=== PATIENT | female | born 1985 | race Asian ===

== ENCOUNTER 2017-04-24 08:43 | Inpatient (IN) | payer MEDICAID ==
[2017-04-24] MEDS ORDERED: TERBUTALINE SULFATE 1 MG/ML VIAL IV PRN (09:07)
[2017-04-24] MEDS ORDERED: OXYTOCIN 20 UNIT in LR 1,000 ML IV PRN (09:07)
[2017-04-24] MEDS ORDERED: EPSOM SALT 454 GM TP PRN (09:07)
[2017-04-24] MEDS ORDERED: LR 1,000 ML IV PRN (09:07)
[2017-04-24] MEDS ORDERED: OLIVE OIL 118 ML BTL MISC PRN (09:07)
[2017-04-24] MEDS ORDERED: AMMONIA AROMATIC 1 EACH AMP IH PRN (09:07)
[2017-04-24] MEDS ORDERED: LR 500 ML IV PRN (10:30)
[2017-04-24] MEDS ORDERED: OXYTOCIN 30 UNIT in NS 500 ML IV SCH (10:30)
--- NOTE | 2017-04-24 10:52 | GHP ---
[f rep st] HISTORY AND PHYSICAL DATE OF ADMISSION: 04/24/2017 ADMISSION DIAGNOSES: 1. Intrauterine at 39-5/7 weeks' gestation. 2. Spontaneous rupture of membranes. HISTORY OF PRESENT ILLNESS: The patient is a 31-year-old, 1, para 0, who is 39-5/7 weeks' station. Her estimated date of confinement is 04/26/2017, dated by last menstrual period consistent with a 9 weeks 5 days ultrasound. The patient transferred to [facility] at 22 weeks' gesta tion. Her has been uncomplicated. She had a growth ultrasound at 33 weeks secondary to si ze less than dates. At her 30-week ultrasound, estimated weight was the 23rd percentile with a n YANET of 16. The patient had spontaneous rupture of membranes at 5:30 in the morning. She is having occasional tightening of her belly, but not having any contractions. status remains reassurin g. MEDICAL HISTORY: History of dengue fever at age 23. MEDICATIONS: vitamins. SURGICAL HISTORY: Negative. ALLERGIES: No known drug allergies. SOCIAL HISTORY: Patient is a homemaker. She is originally from [place] and moved to [facility] i n 06/2016. She denies tobacco, alcohol, or drug use. FAMILY MEDICAL HISTORY: Noncontributory. SOURCING INTER[employer]HIP HISTORY: Menarche age 15. Periods every 30 days lasting 5 days. She is 1, para 0. Current has been uncomplicated. The patient denies any history of any abnormal Pap smears or sexually transmitted diseases. REVIEW OF SYSTEMS: 10-point review of systems is negative with the exception of the above-mentioned pertinent positives. Positive movement, positive loss of fluid, small amount of vaginal bleedi ng. She denies any headache, changes in vision, nausea, vomiting, cramping, or obdulia. PHYSICAL EXAMINATION: VITAL SIGNS: Stable. GENERAL APPEARANCE: Alert and oriented x3. PSYCH: Ap propriate affect. NECK: Mobile and supple. HEART: Rate is regular. LUNGS: Clear to auscultation bilaterally. ABDOMEN: Gravid, nondistended, nontender. EXTREMITIES: Reveal no calf tenderness or edema. MUSCULOSKELETAL: Grossly intact. NEURO: Grossly intact. PELVIC: Cervix was posterior and uncomfortable for the patient, so I did not complete exam. The is in a vertex presentation. heart tracing is category 1. She is having occasional contractions that are very mild and not ed to be cramping, per patient. LABS: Blood type B positive, antibody screen negative. Rubella immune. GBS negative. HBs Ag negative. HIV negative. She had a negative 1st trimester screen. ASSESSMENT AND PLAN: 31-year-old, 1, para 0, at 39-5/7 weeks' gestation with premature ruptu re of membranes. She will be started on Pitocin. If she does not progress into labor, she will be m anaged expectantly. She will most likely get an epidural. She has talked to Anesthesia about risks and benefits and will request one when she is uncomfortable. /[id number]/MODL
[2017-04-24 11:12] LABS: PLATELET COUNT 197 10^3/uL (150-400)
[2017-04-24] MEDS ORDERED: LIDOCAINE 1% 300 MG/30 ML SDV ONE (11:59)
[2017-04-24] MEDS ORDERED: OLIVE OIL 118 ML BTL ONE (11:59)
[2017-04-24] MEDS ORDERED: OXYTOCIN 10 UNIT/ML VIAL ONE (12:00)
[2017-04-24] MEDS ORDERED: AMMONIA AROMATIC 1 EACH AMP IH ONE (12:00)
[2017-04-24] MEDS ORDERED: MISOPROSTOL 200 MCG TAB ONE (12:00)
[2017-04-24] MEDS ORDERED: TERBUTALINE SULFATE 1 MG/ML VIAL ONE (12:00)
--- NOTE | 2017-04-24 13:45 | OBPROG ---
Labor Progress Note Assessment/Plan: Assessment: Plan: Subjective/Intrapartum Course: 04/24/17 13:36 pitocin is at 4. patient feeling painful contractions with increased pressure. has good variability but occasional late decelerations. Objective: 04/24/17 11:00 Patient ABO/Rh B POSITIVE 04/24/17 11:00 - SVE Dilation (cm): 3, 4 Effacement (%): 90 Station: 0 Membranes: SROM Amniotic Fluid Color: Clear - FHR Assessment Greer FHR Pattern Variability: Moderate FHR Category: 2 - AP Antepartum Course: 04/24/17 13:38 transfer of care at 22 weeks to [facility]. initiated care in first trimester. moved from [facility] 08/07. growth ultrasound in third trimester due to size less than dates. normal growth. srom at 0530 am. Oxytocin Orders Assessment - Pre-Induction/Augmentation Assessment Gestational Age: 39 week(s) and 5 day(s) ICD10 Worksheet Patient Problems: Problems Problem Status Onset Premature rupture of membranes Acute
[2017-04-24] MEDS ORDERED: fentaNYL 2MCG/ML/BUP 0.1% RTU 100 ML BAG EP ONE (13:50)
[2017-04-24] MEDS ORDERED: PHENYLEPHRINE HCL 100 MCG/ML SYR ONE (13:50)
[2017-04-24] MEDS ORDERED: PHENYLEPHRINE HCL 100 MCG/ML SYR IVP PRN (14:19)
[2017-04-24] MEDS ORDERED: ONDANSETRON 4 MG/2 ML VIAL IVP PRN (14:19)
--- NOTE | 2017-04-24 14:19 | PREANESOB ---
Obstetric Pre-Anesthesia Info - General Info Proposed Procedure: Labor Epidural : 1 Para: 0 JOY: 04/26/17 Gestational Age: 39 week(s) and 5 day(s) - Info Status: Full Term FHR Pattern: Reassuring - Labor Status Cervical Dilation per last OB SVE: 3, 4 Station per last OB SVE: 0 Amniotic Fluid Color: Clear Indications for Labor Analgesia: Pain Control Labor Epidural: Proposed (RBA discussed, patient agrees to proceed) Anesthesia Allergies/Adverse Reactions: Allergy/AdvReac Type Severity Reaction Status Date / Time No Known Allergies Allergy Unverified 04/24/17 09:07 Visit Medications: Generic Name Dose Route Start Last Admin Trade Name Freq PRN Reason Stop Dose Admin Ammonia (Aromatic Spirit) 1 each 04/24/17 09:07 Ammonia Aromatic IH 05/04/17 09:06 ONCE PRN Fainting Lactated Ringer's 1,000 mls @ 0 mls/hr 04/24/17 09:07 04/24/17 11:52 Lr IV 04/25/17 09:06 1,000 mls PRN PRN Administration SEE PROTOCOL CONDITIONS Protocol Per Protocol Oxytocin 20 unit/ Lactated 1,002 mls @ 150 mls/hr 04/24/17 09:07 Ringer's IV PRN PRN Post- bleeding Lactated Ringer's 500 mls @ 500 mls/hr 04/24/17 10:30 Lr IV 04/25/17 10:30 PRN PRN Maternal Hypotension Oxytocin 30 unit/ Sodium 503 mls @ 0 mls/hr 04/24/17 10:30 04/24/17 11:52 Chloride IV 10/21/17 10:29 503 mls CONT RICHELLE Administration Protocol Per Protocol Ibuprofen 600 mg 04/24/17 09:07 Motrin PO 10/21/17 09:06 Q6HRS PRN post , inflammation Magnesium Sulfate 454 gm 04/24/17 09:07 Epsom Salt TP 10/21/17 09:06 Q1H PRN perineal discomfort Witter Oil 118 ml 04/24/17 09:07 Sweet Oil MISC 10/21/17 09:06 ONCE PRN perineal massage Terbutaline Sulfate 0.25 mg 04/24/17 09:07 Brethine IV 10/21/17 09:06 ONCE PRN Tachysystole Discontinued Medications Generic Name Dose Route Start Last Admin Trade Name Genaro PRN Reason Stop Dose Admin Ammonia (Aromatic Spirit) Confirm 04/24/17 12:00 Ammonia Aromatic Administered 04/24/17 12:01 Dose 1 each IH .STK-MED ONE Fentanyl/Bupivacaine HCl Confirm 04/24/17 13:50 Fentanyl/Bupivacaine/Ns 2 Mcg/Ml 0.1% (Premix Administered 04/24/17 13:51 Dose 100 ml EP .STK-MED ONE Lidocaine HCl Confirm 04/24/17 11:59 Lidocaine Hcl 1% Administered 04/24/17 12:00 Dose 300 mg .ROUTE .STK-MED ONE Misoprostol Confirm 04/24/17 12:00 Cytotec Administered 04/24/17 12:01 Dose 800 mcg .ROUTE .STK-MED ONE Witter Oil Confirm 04/24/17 11:59 Sweet Oil Administered 04/24/17 12:00 Dose 118 ml .ROUTE .STK-MED ONE Oxytocin Confirm 04/24/17 12:00 Pitocin Administered 04/24/17 12:01 Dose 40 unit .ROUTE .STK-MED ONE Phenylephrine HCl Confirm 04/24/17 13:50 Neosynephrine Administered 04/24/17 13:51 Dose 1,000 mcg .ROUTE .STK-MED ONE Terbutaline Sulfate Confirm 04/24/17 12:00 Brethine Administered 04/24/17 12:01 Dose 1 mg .ROUTE .STK-MED ONE - Vital Signs Height/Weight (Nursing): Height 159 cm Weight 64.864 kg Labs: 04/24/17 11:00 Patient ABO/Rh B POSITIVE 04/24/17 11:00
[2017-04-24] MEDS ORDERED: fentaNYL 2MCG/ML/BUP 0.1% RTU 100 ML EP SCH (14:30)
--- NOTE | 2017-04-24 16:38 | OBPROG ---
Labor Progress Note Assessment/Plan: Assessment: Plan: Subjective/Intrapartum Course: 04/24/17 13:36 pitocin is at 4. patient feeling painful contractions with increased pressure. has good variability but occasional late decelerations. 04/24/17 16:34 patient comfortable with epidural. progressed to complete. occasional variable decelerations. pitocin is at 2 mu. tried pushing x 1 contraction. patient only occasionally feeling urge or pressure. will reposition and labor down and begin pushing. overall status is reassuring. Objective: 04/24/17 11:00 Patient ABO/Rh B POSITIVE 04/24/17 11:00 - SVE Dilation (cm): 10 Effacement (%): 100 Station: 0 Membranes: SROM Amniotic Fluid Color: Clear Dilation Complete Date: 04/24/17 Dilation Complete Time: 15:18 - Contraction Pattern Assessment Current Contraction Pattern: Regular - FHR Assessment Greer FHR Pattern Variability: Moderate FHR Category: 2 - AP Antepartum Course: 04/24/17 13:38 transfer of care at 22 weeks to [facility]. initiated care in first trimester. moved from [facility] 08/07. growth ultrasound in third trimester due to size less than dates. normal growth. srom at 0530 am. Oxytocin Orders Assessment - Pre-Induction/Augmentation Assessment Gestational Age: 39 week(s) and 5 day(s) ICD10 Worksheet Patient Problems: Problems Problem Status Onset Premature rupture of membranes Acute
--- NOTE | 2017-04-24 17:26 | OBPROG ---
Labor Progress Note Assessment/Plan: Assessment: Plan: Subjective/Intrapartum Course: 04/24/17 13:36 pitocin is at 4. patient feeling painful contractions with increased pressure. has good variability but occasional late decelerations. 04/24/17 16:34 patient comfortable with epidural. progressed to complete. occasional variable decelerations. pitocin is at 2 mu. tried pushing x 1 contraction. patient only occasionally feeling urge or pressure. will reposition and labor down and begin pushing. overall status is reassuring. 04/24/17 17:23 patient complete and pushing. having decels with slow return to baseline. will continue pushing. anesthesia notified and asked to be in house until patient delvers. Objective: 04/24/17 11:00 Patient ABO/Rh B POSITIVE 04/24/17 11:00 - SVE Dilation (cm): 10 Effacement (%): 100 Station: +2 Membranes: SROM Amniotic Fluid Color: Clear Dilation Complete Date: 04/24/17 Dilation Complete Time: 15:18 - Contraction Pattern Assessment Current Contraction Pattern: Regular - AP Antepartum Course: 04/24/17 13:38 transfer of care at 22 weeks to [facility]. initiated care in first trimester. moved from [facility] 08/07. growth ultrasound in third trimester due to size less than dates. normal growth. srom at 0530 am. Oxytocin Orders Assessment - Pre-Induction/Augmentation Assessment Gestational Age: 39 week(s) and 5 day(s) ICD10 Worksheet Patient Problems: Problems Problem Status Onset Premature rupture of membranes Acute
--- NOTE | 2017-04-24 19:25 | OBDEL ---
Info Type: Vaginal Presentation at Delivery: Vertex L&D Analgesia/Anesthesia Type: Epidural GBS+: No Intrapartum Medications: Generic Name Dose Route Start Last Admin Trade Name Freq PRN Reason Stop Dose Admin Lactated Ringer's 1,000 mls @ 0 mls/hr 04/24/17 09:07 04/24/17 11:52 Lr IV 04/25/17 09:06 1,000 mls PRN PRN Administration SEE PROTOCOL CONDITIONS Protocol Per Protocol Oxytocin 30 unit/ Sodium 503 mls @ 0 mls/hr 04/24/17 10:30 04/24/17 11:52 Chloride IV 10/21/17 10:29 503 mls CONT RICHELLE Administration Protocol Per Protocol - Hospital Course Intrapartum: 04/24/17 13:36 pitocin is at 4. patient feeling painful contractions with increased pressure. has good variability but occasional late decelerations. 04/24/17 16:34 patient comfortable with epidural. progressed to complete. occasional variable decelerations. pitocin is at 2 mu. tried pushing x 1 contraction. patient only occasionally feeling urge or pressure. will reposition and labor down and begin pushing. overall status is reassuring. 04/24/17 17:23 patient complete and pushing. having decels with slow return to baseline. will continue pushing. anesthesia notified and asked to be in house until patient delvers. 04/24/17 19:22 severe decels with pushing. discussed vacuum vs c section risks and benefits. agreeable to vacuum attempt Indications for Delivery: Spontaneous Labor, SROM Vaginal Delivery - Delivery Provider Delivery Physician/CNM: Fatuma Smith - Labor and Delivery Onset of Contractions Date: 04/24/17 Onset of Contractions Type: Augmented Rupture of Membranes Date: 04/24/17 Rupture of Membranes Time: 05:30 Rupture of Membranes Type: Spontaneous Amniotic Fluid Color: Clear Dilation Complete Date: 04/24/17 Dilation Complete Time: 15:18 Placenta Delivery Date: 04/24/17 Placenta Delivery Time: 18:18 Laceration: 2nd Degree, Other (Specify) (bilateral sulcus tears, left labial) Vaginal Sponge Count Correct: Yes Vaginal Needle Count Correct: Yes Vaginal Sweep Performed: No EBL: 200 Delivery Events: Nuchal Cord Delivery Comment: severe variables with decreased variability towards the end of pushing. decision made to use vacuum Cord Gases: Cord Gases Cord Blood PCO2 TNP 04/24/17 18:18 Cord Base Excess TNP 04/24/17 18:18 Cord ABG pH TNP 04/24/17 18:18 Cord VBG pH 7.24 (7.20-7.42) 04/24/17 18:18 - Medications Labor Augmentation/Induction Methods Used: Pitocin Labor Augmentation/Induction Indication: Contraction Strength Inadequate Operative Report - Delivery Cord Gases: Cord Gases Cord Blood PCO2 TNP 04/24/17 18:18 Cord Base Excess TNP 04/24/17 18:18 Cord ABG pH TNP 04/24/17 18:18 Cord VBG pH 7.24 (7.20-7.42) 04/24/17 18:18 Assissted Delivery Assisted Delivery Type: Vacuum Station: +3 Pop offs (Total): 0 Pulls (Total): 1 [place] Data JOY: 04/26/17 Gestational Age: 39 week(s) and 5 day(s) Greer Delivery Date: 04/24/17 Delivery Time: 18:13 Sex of : Male Score (1 Min): 8 Score (5 Min): 9 ICD10 Worksheet Patient Problems: Problems Problem Status Onset Premature rupture of membranes Acute
[2017-04-24] MEDS ORDERED: SIMETHICONE 80 MG TAB CHEW PO PRN (19:30)
[2017-04-24] MEDS ORDERED: POLYETHYLENE GLYCOL 3350 17 GM PKT PO PRN (19:30)
[2017-04-24] MEDS ORDERED: LACTULOSE 20 GM/30 ML UDCUP PO PRN (19:30)
[2017-04-24] MEDS ORDERED: HYDROCODONE/APAP 5/325 TAB PO PRN (19:30)
[2017-04-24] MEDS ORDERED: MAGNESIUM HYDROXIDE 30 ML UDCUP PO PRN (19:30)
[2017-04-24] MEDS ORDERED: BISACODYL 10 MG SUPP PR PRN (19:30)
[2017-04-24] MEDS ORDERED: ACETAMINOPHEN 325 MG TAB PO PRN (19:30)
[2017-04-24] MEDS: IBUPROFEN 600 MG TAB PO PRN (20:39)
[2017-04-25] MEDS: SENNOSIDES/DOCUSATE SODIUM TAB PO SCH ×3 (01:25→15:59)
[2017-04-25] MEDS: IBUPROFEN 600 MG TAB PO PRN ×4 (02:39→22:25)
[2017-04-25] MEDS: HYDROCORTISONE 0.5% CREAM TP PRN ×2 (09:28→15:52)
--- NOTE | 2017-04-25 13:43 | OBPP ---
Progress Note Assessment/Plan: Assessment: s/p PPD # 1 - pt is stable Plan: Continue routine pp care Encourage ambulation Plan for d/c home in am 1/4 04/25/17 13:40 Subjective/ Course: 04/25/17 13:41 Pt seen and examined. Doing well, some vaginal soreness. Relief with Ibu. Mild cramping. Mod lochia. Pt is OOB, edmond regular diet, voiding and passing flatus. BF well thus far. Objective: 04/24/17 11:00 Patient ABO/Rh B POSITIVE 04/24/17 11:00 Temp Pulse Resp BP Pulse Ox 36.1 C 97 16 100/63 97 04/25/17 08:00 04/25/17 08:00 04/25/17 08:00 04/25/17 08:00 04/25/17 00:30 Uterine Position/Fundal Height: Umbilicus -2 Uterine Tone: Firm Physical Exam - Physical Exam Respiratory: normal breath sounds, respiratory distress Cardiac/Chest: regular rate, rhythm Abdomen: normal bowel sounds, non-tender, soft, flatus (+) Extremities: non-tender, normal inspection Skin: normal color, warm/dry Neuro/Psych: alert, normal mood/affect, oriented x 3
--- NOTE | 2017-04-25 13:52 | SOAPPROG ---
SOAP Progress Note Assessment/Plan: Assessment: Doing well, POD 1 epidural anesthesia. Plan: Continue routine PO cares. Call with questions or concerns. 04/25/17 13:50 04/25/17 13:51 Subjective: Patient seen and examined on the floor. POD 1 s/p epidural analgesia for labor. Doing well, no complaints. Denies GOODRICH, Nausea or difficulty ambulating or urinating. Objective: Vital Signs Temp Pulse Resp BP Pulse Ox 36.1 C 97 16 100/63 97 04/25/17 08:00 04/25/17 08:00 04/25/17 08:00 04/25/17 08:00 04/25/17 00:30 Laboratory Results 04/24/17 11:00 04/24/17 04/25/17 04/26/17 05:59 05:59 05:59 Output Total 400 Balance -400 Physical Exam - Physical Exam General Appearance: alert, no apparent distress Respiratory: normal breath sounds Cardiac/Chest: normal peripheral pulses Extremities: normal inspection ICD10 Worksheet Patient Problems: Problems Problem Status Onset Premature rupture of membranes Acute Status post vacuum-assisted vaginal delivery Acute
[2017-04-25] MEDS: DOCUSATE SODIUM 100 MG CAP PO PRN (22:25)
[2017-04-26] MEDS: IBUPROFEN 600 MG TAB PO PRN ×3 (05:55→18:12)
[2017-04-26 08:31] VITALS: BP 94/52; PULSE 69; RESP 16; TEMP 97.9; O2SAT 96
--- NOTE | 2017-04-26 09:20 | OBPP ---
Progress Note Assessment/Plan: Assessment: 31yo s/p PPD#2 Plan: routine PP care cont work with plan to d/c home tomorrow 04/26/17 09:24 Subjective/ Course: 04/25/17 13:41 Pt seen and examined. Doing well, some vaginal soreness. Relief with Ibu. Mild cramping. Mod lochia. Pt is OOB, edmond regular diet, voiding and passing flatus. BF well thus far. 04/26/17 09:19 Pt doing well, she denies any heavy bleeding. She reports moderate vaginal pain with improvement with ibuprofen. She is voiding without difficulty. She is - having some difficulty- will plan to work with today. 04/26/17 09:25 Objective: 04/24/17 11:00 Patient ABO/Rh B POSITIVE 04/24/17 11:00 Temp Pulse Resp BP Pulse Ox 36.6 C 69 16 94/52 L 96 04/26/17 08:00 04/26/17 08:00 04/26/17 08:00 04/26/17 08:00 04/26/17 08:00 Uterine Position/Fundal Height: Umbilicus -1, Midline Uterine Tone: Firm Physical Exam - Physical Exam Neck: supple Respiratory: lungs clear, normal breath sounds Cardiac/Chest: regular rate, rhythm Abdomen: normal bowel sounds, non-tender, soft Extremities: non-tender Skin: normal color, warm/dry, cyanosis Neuro/Psych: alert, normal mood/affect, oriented x 3
--- NOTE | 2017-04-26 10:34 | OBGCSDC ---
General Delivery Information - General Info : 1 Para: 1 Abortions: 0 Type: Vaginal L&D Analgesia/Anesthesia Type: Epidural Admission Date: 04/24/17 Labs: Patient ABO/Rh B POSITIVE 04/24/17 11:00 Hct 39.6 % (38.0-47.0) 04/24/17 11:00 - Hospital Course Antepartum: 04/24/17 13:38 transfer of care at 22 weeks to [facility]. initiated care in first trimester. moved from [facility] 08/07. growth ultrasound in third trimester due to size less than dates. normal growth. srom at 0530 am. Intrapartum: 04/24/17 13:36 pitocin is at 4. patient feeling painful contractions with increased pressure. has good variability but occasional late decelerations. 04/24/17 16:34 patient comfortable with epidural. progressed to complete. occasional variable decelerations. pitocin is at 2 mu. tried pushing x 1 contraction. patient only occasionally feeling urge or pressure. will reposition and labor down and begin pushing. overall status is reassuring. 04/24/17 17:23 patient complete and pushing. having decels with slow return to baseline. will continue pushing. anesthesia notified and asked to be in house until patient delvers. 04/24/17 19:22 severe decels with pushing. discussed vacuum vs c section risks and benefits. agreeable to vacuum attempt : 04/25/17 13:41 Pt seen and examined. Doing well, some vaginal soreness. Relief with Ibu. Mild cramping. Mod lochia. Pt is OOB, edmond regular diet, voiding and passing flatus. BF well thus far. 04/26/17 09:19 Pt doing well, she denies any heavy bleeding. She reports moderate vaginal pain with improvement with ibuprofen. She is voiding without difficulty. She is - having some difficulty- will plan to work with today. 04/26/17 09:25 04/26/17 19:30 S) Pt doing well, reports min pain and bleeding. she is ambulating and voiding without difficulty. She is . She desires discharge home today. O) VSS, afebrile constitutional: WNWF, A&Ox3 HEENT: normocephalic, atraumatic, supple Heart: RRR, No murmur Chest: CTA-B Abdomen: Soft, nontender Uterus: Firm at U-2 Lochia: Minimal rubra Perineum: healing well Extremities: Trace edema, and negative Brianna's sign Neuro: Grossly normal A) 31-year-old S/P VAVD PPD#2 P) Discharge home today/will boarder with baby Continue Pelvic rest x6wks Discussed danger signs (infection, preeclampsia, depression, heavy bleeding, etc ) RTO in 4/6 weeks Vaginal - Delivery Provider Delivery Physician/CNM: Fatuma Smith - Diagnosis Labor: Augmented Rupture of Membranes Type: Spontaneous Amniotic Fluid Color: Clear Laceration: 2nd Degree, Other (Specify) (bilateral sulcus tears, left labial) Delivery Events: Nuchal Cord - Procedures Assisted Delivery Type: Vacuum - Delivery EBL: 200 [place] Data JOY: 04/26/17 Gestational Age: 40 week(s) and 0 day(s) Greer Delivery Date: 04/24/17 Delivery Time: 18:13 Sex of : Male Score (1 Min): 8 Score (5 Min): 9 Discharge Information - Discharge Information Prescriptions: Ibuprofen [Motrin (*)] 600 mg PO Q6HRS PRN #30 tab PRN Reason: post , inflammation Condition: Good
[2017-04-26] MEDS: SENNOSIDES/DOCUSATE SODIUM TAB PO SCH (12:53)
[2017-04-26] MEDS: DOCUSATE SODIUM 100 MG CAP PO PRN (18:11)
== END 2017-04-26 18:55 | disposition home or self-care (01) | DRG 775 ==
LOC: FLD 08:43 → FOB 04-25
PROVIDERS: ADMIT Obstetrics & Gynecology; ATTEND Obstetrics & Gynecology
PROC: 10D07Z6 Extraction of Products of Conception, Vacuum, Via Natural or Artificial Opening (ICD-10-PCS; principal; 2017-04-24)
PROC: 0KQM0ZZ Repair Perineum Muscle, Open Approach (ICD-10-PCS; principal; 2017-04-24)
DX: O42.02 Full-term premature rupture of membranes, onset of labor within 24 hours of rupture (principal); O76 Abnormality in fetal heart rate and rhythm complicating labor and delivery; O70.1 Second degree perineal laceration during delivery; O69.81X0 Labor and delivery complicated by cord around neck, without compression, not applicable or unspecified; Z3A.39 39 weeks gestation of pregnancy; Z37.0 Single live birth
CPT/HCPCS: J2370; J3105

== ENCOUNTER 2017-04-29 00:11 | Emergency (ER) | payer MEDICAID ==
[2017-04-29 00:23] VITALS: TEMP 98.2
[2017-04-29] MEDS ORDERED: NS 1,000 ML IV ONE (00:27)
--- NOTE | 2017-04-29 00:27 | EDPHY ---
H & P Stated Complaint: Hemorrhoids, constipation post giving , "pain from stitches, pressure Time Seen by Provider: 04/29/17 00:26 HPI/ROS: HPI: This is a 31-year-old female who presents with Chief Complaint: Hemorrhoids, constipation post giving , "pain from stitches, pressure Location: rectum Quality: Pain Duration: 2 days Signs and Symptoms: no fever, no nausea, no vomiting, no hematemesis, no blood in stool, no abdominal bloating, no diarrhea, no back pain, no urinary symptoms , no vaginal discharge, no indigestion, no chest pain, no shortness of breath Timing: Sudden, constant, worse with defecation Severity: Moderate Context: Patient is , s/p vacuum assisted vaginal delivery on 04/27/2016. Currently breast-feeding. Patient reports that she has not had a bowel movement in over a week. She reports abdominal bloating but is passing flatus. She had a left labia repair along with her perineum 2nd degree. She reports when she attempts to have a bowel movement and strain she can feel her stitches under perineum that causes her discomfort. She has not tried any over-the- counter remedies for constipation. She is able to eat and drink 3 times a day without difficulty. Currently breast feeding. Denies any hemoptysis/fever/ blood in stool. She reports compliance with pelvic rest. Patient reports some vaginal spotting over the last few days but has significantly decreased. Patient denies headache/lower extremity edema/dizziness/vision changes/chest pain/shortness of breath. Modifying Factors: None Comment: ROS: see HPI Constitutional: No fever, no chills, no weight loss Eyes: No blurred vision Respiratory: No shortness of breath, no cough Cardiovascular: No chest pain, no palpitations Gastrointestinal: No nausea, no vomiting, no diarrhea, no hematemesis, no blood in stool Genitourinary: No dysuria, no blood in urine Extremities: No myalgias, no edema Neurologic: No weakness, no numbness Skin: No rashes, no petechiae Hematologic: No bruising, no bleeding MEDICAL/SURGICAL/SOCIAL HISTORY: Medical history: Generally healthy. Does not take any regular medications. Surgical history: Denies Social history: . CONSTITUTIONAL: awake and alert, no obvious distress HEENT: Atraumatic and normocephalic, PERRL, EOMI. Tympanic membranes clear. Oropharynx clear, no exudate and moist pink mucosa. Airway patent. No lymphadenopathy. No meningismus. Cardiovascular: Normal S1/S2, regular rate, regular rhythm, without murmur rub or gallop. PULMONARY/CHEST: Symmetrical and nontender. Clear to auscultation bilaterally. Good air movement. No accessory muscle usage. ABDOMEN: Soft, nondistended, nontender, no rebound, no guarding, no peritoneal signs, no masses or organomegaly. No CVAT. RECTAL: Good sphincter tone, light brown stool in vault, small 3 o'clock non- thrombosed hemorrhoids, no fissures, no palpable masses, guaiac negative EXTREMITIES: 2/2 pulses, strength 5/5, no deformities, no clubbing, no cyanosis or edema. NEUROLOGICAL: no focal neuro deficits. GCS 15. SKIN: Warm and dry, no erythema. no rash. Good capillary refill. Source: Patient, Family () Exam Limitations: No limitations - Personal History Current Tetanus Diphtheria and Acellular Pertussis (TDAP): Unsure - Medical/Surgical History Hx Asthma: No Hx Chronic Respiratory Disease: No Hx Diabetes: No Hx Cardiac Disease: No Hx Renal Disease: No Hx Cirrhosis: No Hx Alcoholism: No Hx HIV/AIDS: No Hx Splenectomy or Spleen Trauma: No Other PMH: NONE - Social History Smoking Status: Never smoked Constitutional: Initial Vital Signs Temperature (C) 36.8 C 04/29/17 00:18 Heart Rate 79 04/29/17 00:18 Respiratory Rate 20 04/29/17 00:18 Blood Pressure 110/65 04/29/17 00:18 O2 Sat (%) 96 04/29/17 00:18 O2 Delivery Mode Room Air Allergies/Adverse Reactions: No Known Allergies Allergy (Verified 04/29/17 00:17) Home Medications: Medication Instructions Recorded Ibuprofen [Motrin (*)] 600 mg PO Q6HRS PRN #30 tab 04/26/17 Cefuroxime Axetil [Ceftin (*)] 250 mg PO BID #14 tab 04/29/17 Hydrocortisone Acetate 25 mg MA Q6 PRN #7 supp 04/29/17 [Hemorrhoidal Hc 25 mg supp (*)] Polyethylene Glycol 3350 [Miralax 17 gm PO DAILY #30 pkt 04/29/17 17 gm (*)] Medical Decision Making ED Course/Re-evaluation: Labs, urinalysis, IV fluids, IV and topical medications, occult blood, KUB ordered No signs of wound dehiscence/cellulitis/abscess/thrombosed hemorrhoid Patient is a good abdominal exam is soft and nontender. Doubt surgical intervention required. Viscous lidocaine topical applied with adequate pain relief, hemorrhoid suppository inserted and given p.o. MiraLax for constipation Serum quant noted; ~200; appropriately hardly negligible; corresponds with . Urinalysis shows infection; sent for urine culture. Patient was already discharging will write for Ceftin prescription. Prescription to be given to patient called into her pharmacy for preference. This patient was seen under the supervision of my secondary supervising physician. I evaluated care for this patient independently. Discussed this patient with Dr. Danielson who did not see the patient. Patient's presentation, labs/imaging, treatment and plan of care were discussed with secondary supervising physician. Differential Diagnosis: Differential diagnosis includes but is not limited to preeclampsia, endometritis , wound dehiscence, thrombosed hemorrhoid, lower GI bleed, small bowel obstruction. - Data Points Laboratory Results: Laboratory Results 04/29/17 00:40 04/29/17 00:40 04/29/17 04/29/17 04/29/17 01:20 00:44 00:40 WBC RBC Hgb Hct MCV MCH MCHC RDW Plt Count MPV Neut % (Auto) Lymph % (Auto) [place] % (Auto) Eos % (Auto) Baso % (Auto) Nucleat RBC Rel Count Absolute Neuts (auto) Absolute Lymphs (auto) Absolute Monos (auto) Absolute Eos (auto) Absolute Basos (auto) Absolute Nucleated RBC Immature Gran % Immature Gran # Sodium Potassium Chloride Carbon Dioxide Anion Gap BUN Creatinine Estimated GFR Glucose Calcium Total Bilirubin Conjugated Bilirubin Unconjugated Bilirubin AST ALT Alkaline Phosphatase Total Protein Albumin Lipase Beta HCG, Qual Beta HCG, Quant 274.61 mIU/mL H mIU/mL (0.00-4.83) Urine Color YELLOW Urine Appearance MODERATELY TURBID Urine pH 6.0 (5.0-7.5) Ur Specific [place] 1.013 (1.002-1.030) Urine Protein 1+ H (NEGATIVE) Urine Ketones NEGATIVE (NEGATIVE) Urine Blood 3+ H (NEGATIVE) Urine Nitrate NEGATIVE (NEGATIVE) Urine Bilirubin NEGATIVE (NEGATIVE) Urine Urobilinogen NEGATIVE EU EU (0.2-1.0) Ur Leukocyte Esterase 3+ H (NEGATIVE) Urine RBC 50-182 /hpf H /hpf (0-3) Urine WBC 50-182 /hpf H /hpf (0-3) Ur Epithelial Cells TRACE /lpf /lpf (NONE-1+) Urine Bacteria 2+ /hpf H /hpf (NONE SEEN) Urine Glucose NEGATIVE (NEGATIVE) Stool Occult Bld Scrn NEGATIVE (NEGATIVE) 04/29/17 04/29/17 04/29/17 00:40 00:40 00:40 WBC 9.24 10^3/uL 10^3/uL (3.80-9.50) RBC 3.82 10^6/uL L 10^6/uL (4.18-5.33) Hgb 11.3 g/dL L g/dL (12.6-16.3) Hct 34.1 % L % (38.0-47.0) MCV 89.3 fL fL (81.5-99.8) MCH 29.6 pg pg (27.9-34.1) MCHC 33.1 g/dL g/dL (32.4-36.7) RDW 12.8 % % (11.5-15.2) Plt Count 219 10^3/uL 10^3/uL (150-400) MPV 9.7 fL fL (8.7-11.7) Neut % (Auto) 70.5 % % (39.3-74.2) Lymph % (Auto) 20.8 % % (15.0-45.0) Dundy % (Auto) 5.5 % % (4.5-13.0) Eos % (Auto) 2.5 % % (0.6-7.6) Baso % (Auto) 0.3 % % (0.3-1.7) Nucleat RBC Rel Count 0.0 % % (0.0-0.2) Absolute Neuts (auto) 6.51 10^3/uL H 10^3/uL (1.70-6.50) Absolute Lymphs (auto) 1.92 10^3/uL 10^3/uL (1.00-3.00) Absolute Monos (auto) 0.51 10^3/uL 10^3/uL (0.30-0.80) Absolute Eos (auto) 0.23 10^3/uL 10^3/uL (0.03-0.40) Absolute Basos (auto) 0.03 10^3/uL 10^3/uL (0.02-0.10) Absolute Nucleated RBC 0.00 10^3/uL 10^3/uL (0-0.01) Immature Gran % 0.4 % % (0.0-1.1) Immature Gran # 0.04 10^3/uL 10^3/uL (0.00-0.10) Sodium 140 mEq/L mEq/L (134-144) Potassium 4.2 mEq/L mEq/L (3.5-5.2) Chloride 108 mEq/L mEq/L (97-110) Carbon Dioxide 23 mEq/l mEq/l (22-31) Anion Gap 9 mEq/L mEq/L (8-16) BUN 12 mg/dL mg/dL (7-23) Creatinine 0.5 mg/dL L mg/dL (0.6-1.0) Estimated GFR > 60 Glucose 97 mg/dL mg/dL (70-100) Calcium 9.8 mg/dL mg/dL (8.5-10.4) Total Bilirubin 0.2 mg/dL mg/dL (0.1-1.4) Conjugated Bilirubin 0.1 mg/dL mg/dL (0.0-0.5) Unconjugated Bilirubin 0.1 mg/dL mg/dL (0.0-1.1) AST 39 IU/L IU/L (14-46) ALT 50 IU/L IU/L (9-52) Alkaline Phosphatase 85 IU/L IU/L (38-126) Total Protein 6.2 g/dL L g/dL (6.3-8.2) Albumin 3.4 g/dL L g/dL (3.5-5.0) Lipase 186 IU/L IU/L (23-300) Beta HCG, Qual POSITIVE Beta HCG, Quant Urine Color Urine Appearance Urine pH Ur Specific [place] Urine Protein Urine Ketones Urine Blood Urine Nitrate Urine Bilirubin Urine Urobilinogen Ur Leukocyte Esterase Urine RBC Urine WBC Ur Epithelial Cells Urine Bacteria Urine Glucose Stool Occult Bld Scrn Medications Given: Discontinued Medications Sodium Chloride (Ns) 1,000 mls @ 0 mls/hr IV EDNOW ONE; Wide Open PRN Reason: Protocol Stop: 04/29/17 00:28 Last Admin: 04/29/17 00:55 Dose: 1,000 mls Lidocaine (Uroject Lidocaine 2% Jelly) 20 ml UR EDNOW ONE Stop: 04/29/17 00:51 Last Admin: 04/29/17 00:55 Dose: 20 ml Phenylephrine HCl (Preparation H Supp) 1 supp MA ONCE ONE Stop: 04/29/17 00:47 Last Admin: 04/29/17 01:22 Dose: 1 supp Polyethylene Glycol (Miralax) 17 gm PO EDNOW ONE Stop: 04/29/17 00:47 Last Admin: 04/29/17 00:55 Dose: 17 gm Departure - Departure Disposition: Home, Routine, Self-Care Clinical Impression: hemorrhoids, Lower urinary tract infection Constipation Qualifiers: Constipation type: unspecified constipation type Qualified Code(s): K59.00 - Constipation, unspecified Condition: Good Instructions: Perineal Care (DC), Constipation (ED), Hemorrhoids (ED ), Sitz Bath (DC) Additional Instructions: Please call Dr. Smith on Sunday for follow-up appointment next week. Drink a minimum 8-10 glasses of water and eat a high-fiber diet. Use Anusol HC suppositories every 6 hr as needed for hemorrhoidal or anal pain. Take MiraLax daily until having normal soft bowel movements every day and then use as needed. Take Tylenol or ibuprofen for any pain. Referrals: Fatuma Smith DO [Doctor of Osteopathy] - 06/06/17 Prescriptions: Cefuroxime Axetil [Ceftin (*)] 250 mg PO BID #14 tab Hydrocortisone Acetate [Hemorrhoidal Hc 25 mg supp (*)] 25 mg MA Q6 PRN #7 supp PRN Reason: Inflammation Polyethylene Glycol 3350 [Miralax 17 gm (*)] 17 gm PO DAILY #30 pkt
[2017-04-29] MEDS ORDERED: LIDOCAINE 2% VISCOUS 15 ML UDCUP MISC ONE (00:45)
[2017-04-29] MEDS ORDERED: PHENYLEPHRINE HCL 1 SUPP PR ONE (00:46)
[2017-04-29] MEDS ORDERED: POLYETHYLENE GLYCOL 3350 17 GM PKT PO ONE (00:46)
[2017-04-29] MEDS ORDERED: LIDOCAINE 2% JELLY 20 ML (UROJECT) UR ONE (00:50)
[2017-04-29 00:55] LABS: PLATELET COUNT 219 10^3/uL (150-400)
[2017-04-29 01:26] VITALS: BP 106/60; PULSE 76; RESP 16; O2SAT 97
--- NOTE | 2017-04-29 13:28 | ASMTCMCOM ---
CM Note CM Note Notes: Requested by ED CTL to assist with contact patient. Patient was seen seen 04/29/17 and her urine results shows a UTI. ED provider would like an antibiotic called into her pharmacy of choice. This CM was able to speak with patient on pt's 's phone ([phone]); she would like the Rxn called into [facility] at [address] [place] [address] ([phone]). Patient concerned about the antibiotic and still . Spoke with Ashlyn at [facility] and she said Ceftin is categorized as "use with caution" because a "small amount" of the medication is excreted into the breastmilk and may case baby to have diarrhea and/or dehydration. This was communicated to the patient and we agreed that she should follow up with a provider at [facility] tomorrow and see if there are any other antibiotic options, or if she should take the Ceftin for a week while continuing to pump and waste the milk, and provide baby with either stocked breastmilk or formula. This CM to followup with [facility] ([phone]) tomorrow morning and followup with patient. In the meantime, pt and I agreed to still have the Rxn called into [facility] in case she needs to pick it up. Date Signed: 04/29/2017 01:28 PM Electronically Signed By:Susannah Haq RN
--- NOTE | 2017-04-29 13:29 | ASDISCHSUM ---
Discharge Information Plan Status:Home with No Needs Medically Cleared to Leave: Discharge Date:04/29/2017 02:44 AM CM D/C Disposition:Home, Routine, Self-Care ADT D/C Disposition:Home, Routine, Self-Care Projected Discharge Date:04/29/2017 02:44 AM Transportation at D/C:Family Discharge Delay Reason: Follow-Up Date:04/29/2017 02:44 AM Discharge Slot: Final Diagnosis: Placement Information Patient Contact Information Contact Name:DESHAWN Relationship: Address:[address] Work Phone: City:[place] Alternate Phone: [facility]/Zip Code:[place] [address] Email: Financial Information Financial Class: Primary Plan Desc:[employer] FIRST RISK [employer]OR Primary Plan Number:[id number] Secondary Plan Desc: Secondary Plan Number: Assessment Information [facility] Progress Note CM Note CM Note Notes: Requested by ED CTL to assist with contact patient. Patient was seen seen 04/29/17 and her urine results shows a UTI. ED provider would like an antibiotic called into her pharmacy of choice. This CM was able to speak with patient on pt's 's phone ([phone]); she would like the Rxn called into [facility] at [address] [place] [address] ([phone]). Patient concerned about the antibiotic and still . Spoke with Ashlyn at [facility] and she said Ceftin is categorized as "use with caution" because a "small amount" of the medication is excreted into the breastmilk and may case baby to have diarrhea and/or dehydration. This was communicated to the patient and we agreed that she should follow up with a provider at [facility] tomorrow and see if there are any other antibiotic options, or if she should take the Ceftin for a week while continuing to pump and waste the milk, and provide baby with either stocked breastmilk or formula. This CM to followup with [facility] ([phone]) tomorrow morning and followup with patient. In the meantime, pt and I agreed to still have the Rxn called into [facility] in case she needs to pick it up. 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
--- NOTE | 2017-04-30 10:17 | ASMTCMCOM ---
CM Note CM Note Notes: Followed up with pt's provider at [facility] ([phone]); spoke with Dr.Lisa Dominguez and discussed patient's recent ED visit on 04/29/17 and possible need for antibiotics for a suspected UTI (despite culture being negative at [address] Dominguez says she and her team will reach out to patient and have her follow-up with them regarding her stitches and UTI. Called patient ([phone]) to update her; left voicemail to call CM back with any questions. CM available PRN. Date Signed: 04/30/2017 10:15 AM Electronically Signed By:Susannah Haq RN
== END 2017-04-29 02:44 | disposition home or self-care (01) ==
PROC: 3E0337Z Introduction of Electrolytic and Water Balance Substance into Peripheral Vein, Percutaneous Approach (ICD-10-PCS; principal; 2017-04-29)
DX: O99.63 Diseases of the digestive system complicating the puerperium (principal); K59.00 Constipation, unspecified; O86.20 Urinary tract infection following delivery, unspecified; O87.2 Hemorrhoids in the puerperium; B96.4 Proteus (mirabilis) (morganii) as the cause of diseases classified elsewhere; B95.7 Other staphylococcus as the cause of diseases classified elsewhere; E86.9 Volume depletion, unspecified

== ENCOUNTER → 2017-05-24 | Outpatient (CLI) | payer MEDICAID | LOC: FLACT 10:12 | PROVIDERS: ATTEND Obstetrics & Gynecology | DX: O92.4 Hypogalactia (principal) | CPT/HCPCS: G0463 ==